=== PATIENT | male | born 1930 | race Caucasian/White ===

== ENCOUNTER 2019-05-13 00:38 | Emergency (ER) | payer MEDICARE ==
[~2019-05-13] VITALS: Ht 177.8 cm; Wt 117.9 kg
--- NOTE | 2019-05-13 00:40 | NUR ---
Placed in room 1 . Placed on manager monitoring, blood pressure machine and pulse oximeter. To gown for exam. Side rails up. Report given to Jorge ann.
[2019-05-13 00:42] VITALS: BP_SYST 166
--- NOTE | 2019-05-13 00:44 | NUR ---
Pt brought in by BLS ambulance. Pt awake, alert, oriented x4. Pt states that he had a fall yesterday. Pt states he has back pain. No chest pain, no n/v, diarrhea, no SOB. Pt denies any other medical complaint at this time. Pt resting in ED bed comfortably, no acute distress noted. VSS
--- NOTE | 2019-05-13 00:50 | NUR ---
ER at bedside examining patient.
--- NOTE | 2019-05-13 01:15 | NUR ---
Patient transported to radiology via [facility], accompanied by Radiology staff.
[2019-05-13] MEDS ORDERED: MORPHINE 4 MG/ML INJ. SYRINGE IM ONE (01:45)
--- NOTE | 2019-05-13 01:45 | NUR ---
Returned from radiology, back to [facility].
--- NOTE | 2019-05-13 02:30 | NUR ---
Pt resting in ED bed comfortably. Assisted to use urinal. Pt denies pain
--- NOTE | 2019-05-13 02:45 | NUR ---
ED Physician bedside explaining results and finding of tests and imaging. explaining the need for additional imaging
--- NOTE | 2019-05-13 03:00 | NUR ---
Patient transported to radiology via [facility], accompanied by Radiology Staff.
--- NOTE | 2019-05-13 03:25 | NUR ---
Returned from radiology, back to [facility].
[2019-05-13 03:27] LABS: BASOPHILS % (AUTO) 0.5 % (0.0-2.0); EOSINOPHILS % (AUTO) 0.6 % (0.0-4.0); HEMATOCRIT 37.4 % (36-54); HEMOGLOBIN 12.7 g/dL (14.0-18.0); LYMPHOCYTES # (AUTO) 0.8 K/uL (1.0-5.5); MEAN CORPUSCULAR HEMOGLOBIN 32 pg (27-31); MEAN CORPUSCULAR HGB CONC 34 % (32-36); MEAN CORPUSCULAR VOLUME 95 fL (79.0-98.0); MONOCYTES # (AUTO) 0.6 K/uL (0.0-1.0); MONOCYTES % (AUTO) 8.1 % (1.7-9.3); NEUTROPHILS # (AUTO) 6.3 K/uL (1.8-7.7); NEUTROPHILS % (AUTO) 80.8 % (40.0-70.0); PLATELET COUNT (AUTO) 195 K/uL (130-430); RED BLOOD CELL COUNT(AUTO) 3.95 MIL/uL (4.2-6.2); WHITE BLOOD COUNT (AUTO) 7.8 K/uL (4.8-10.8)
[2019-05-13 03:44] LABS: ANION GAP 6 (5-15); CALCIUM 7.9 mg/dL (8.4-11.0); CHLORIDE 100 mmol/L (98-107); CREATININE 0.97 mg/dL (0.55-1.30); GLUCOSE 135 mg/dL (70-99); POTASSIUM 3.5 mmol/L (3.5-5.1); SODIUM SERUM 138 mmol/L (136-145); UREA NITROGEN, BLOOD 22 mg/dL (8-21)
[2019-05-13 03:45] LABS: PROTHROMBIN TIME 10.2 SECS (9.5-12.5)
[2019-05-13 03:50] LABS: ALANINE AMINOTRANSFERASE 7 U/L (12-78); ALBUMIN 3.3 g/dL (3.4-4.8); ASPARTATE AMINOTRANSFERASE 16 U/L (10-37); TOTAL BILIRUBIN 1.2 mg/dL (0.0-1.0)
--- NOTE | 2019-05-13 04:00 | NUR ---
Pt resting in ED bed comfortably. No acute signs of distress at this time. Pt has 2 family members bedside,. Pt denies pain.VSS
--- NOTE | 2019-05-13 05:00 | NUR ---
Pt assisted to use urinal
[2019-05-13 05:07] LABS: BILIRUBIN,URINE NEGATIVE (NEGATIVE); BLOOD, URINE NEGATIVE (NEGATIVE); CLARITY/URINE CLEAR (CLEAR); COLOR,URINE YELLOW (YELLOW); GLUCOSE,URINE NEGATIVE (NEGATIVE); KETONES,URINE NEGATIVE (NEGATIVE); LEUKOCYTE ESTERASE ,URINE NEGATIVE (NEGATIVE); NITRITE, URINE NEGATIVE (NEGATIVE); PH,URINE 6.5 (5.0-8.0); PROTEIN URINE NEGATIVE (NEGATIVE); UROBILINOGEN,URINE 0.2 (0.2-1.0)
[2019-05-13 06:40] VITALS: BP_SYST 132
--- NOTE | 2019-05-13 06:40 | NUR ---
Patient to be transferred to [facility]. Is being transferred due to higher level of care. Receiving facility has accepting physician and available space. ER physician has signed transfer form. Patient or responsible democrat has agreed to transfer and signed form. Patient belongings inventoried and will be sent with patient. Copy of nursing notes, lab reports, EKG, Physicians Orders and X-rays to be sent with patient. Report called to photolettering machine operator at receiving facility. Receiving physician is . Ambulance on scene for transfer
== END 2019-05-13 06:40 | disposition short-term general hospital (02) ==
LOC: SED 00:38
DX: S22.49XA Multiple fractures of ribs, unspecified side, initial encounter for closed fracture (principal); J93.9 Pneumothorax, unspecified; I10 Essential (primary) hypertension; G20 Parkinson's disease; R41.0 Disorientation, unspecified; F02.80 Dementia in other diseases classified elsewhere, unspecified severity, without behavioral disturbance, psychotic disturbance, mood disturbance, and anxiety; W18.39XA Other fall on same level, initial encounter; Y93.89 Activity, other specified; Y92.89 Other specified places as the place of occurrence of the external cause; Y99.8 Other external cause status
CPT/HCPCS: 36415; 70450; 71250; 72131; 74176; 80053; 81003; 84484; 85025; 85610; 85730; 93005; 96372; 99285; J2270